=== PATIENT | male | born 1980 | race Caucasian/White ===

== ENCOUNTER 2016-08-31 16:07 | Emergency (ER) | payer BC ==
[2016-08-31 16:43] VITALS: BP 146/93
[2016-08-31 17:05] LABS: Basophils % (Auto) 0.3 % (0.0-1.8); Eosinophils % (Auto) 1.6 % (0.0-4.3); Hematocrit 41.7 % (35.5-45.6); Hemoglobin 14.5 gm/dl (11.8-15.2); Mean Corpuscular HGB Conc 35 % (32-34); Mean Corpuscular Hemoglobin 30 pg (28-32); Mean Corpuscular Volume 86 fl (84-94); Platelet Count 241 K/mm3 (140-440); Red Blood Count 4.84 M/mm3 (3.65-5.03); Red Cell Distribution Width 13.6 % (13.2-15.2); White Blood Count 11.8 K/mm3 (4.5-11.0)
[2016-08-31 17:18] LABS: Alanine Aminotransferase 13 units/L (7-56); Albumin 4.5 g/dL (3.9-5); Albumin/Globulin Ratio 1.6 %; Alkaline Phosphatase 50 units/L (35-129); Anion Gap 17 mmol/L; BUN/Creatinine Ratio 11.53; Blood Urea Nitrogen 15 mg/dL (9-20); Calcium 8.7 mg/dL (8.4-10.2); Carbon Dioxide 26 mmol/L (22-30); Chloride 99.2 mmol/L (98-107); Glucose 95 mg/dL (75-100); Lipase 20 units/L (13-60); Potassium 4.1 mmol/L (3.6-5.0); Sodium 138 mmol/L (137-145); Total Protein 7.3 g/dL (6.3-8.2)
[2016-08-31 18:33] LABS: Bilirubin,Urine NEG (Negative); Blood,Urine NEG (Negative); Ketones,Urine NEG (Negative); Leukocyte Esterase,Urine NEG (Negative); Nitrite,Urine NEG (Negative); Protein,Urine <15 mg/dL mg/dL (Negative); Urobilinogen,Urine < 2.0 mg/dL (<2.0)
--- NOTE | 2016-09-01 10:28 | ED Elopement Review ---
ED Pt Elopement review - Results review Lab results: Laboratory Tests 08/31/16 08/31/16 08/31/16 16:45 16:45 17:03 WBC 11.8 H RBC 4.84 Hgb 14.5 Hct 41.7 MCV 86 MCH 30 MCHC 35 H RDW 13.6 Plt Count 241 Lymph % (Auto) 12.2 L [place] % (Auto) 6.2 Eos % (Auto) 1.6 Baso % (Auto) 0.3 Lymph # 1.4 [place] # 0.7 Eos # 0.2 Baso # 0.0 Seg Neutrophils % 79.7 H Seg Neutrophils # 9.4 H Sodium 138 Potassium 4.1 Chloride 99.2 Carbon Dioxide 26 Anion Gap 17 BUN 15 Creatinine 1.3 Estimated GFR > 60 BUN/Creatinine Ratio 11.53 Glucose 95 Calcium 8.7 Total Bilirubin 0.40 AST 11 ALT 13 Alkaline Phosphatase 50 Total Protein 7.3 Albumin 4.5 Albumin/Globulin Ratio 1.6 Lipase 20 Urine Color Straw Urine Turbidity Clear Urine pH 7.0 Ur Specific [place] 1.015 Urine Protein <15 mg/dl Urine Glucose (UA) Neg Urine Ketones Neg Urine Blood Neg Urine Nitrite Neg Urine Bilirubin Neg Urine Urobilinogen < 2.0 Ur Leukocyte Esterase Neg Urine WBC (Auto) 0.0 Urine RBC (Auto) 0.0 - Call Back decision Pt Call Back Decision: No action required
== END 2016-09-01 01:20 | disposition left against medical advice (07) ==
LOC: ED 16:07
DX: R10.9 Unspecified abdominal pain (principal); F17.200 Nicotine dependence, unspecified, uncomplicated; Z53.21 Procedure and treatment not carried out due to patient leaving prior to being seen by health care provider
CPT/HCPCS: 36415; 80053; 81001; 83690; 85025